=== PATIENT | male | born 1990 | race Caucasian/White ===

== ENCOUNTER 2020-10-04 03:17 | Emergency (ER) | payer OTHER ==
[~2020-10-04] VITALS: Ht 180.3 cm; Wt 72.6 kg
--- NOTE | 2020-10-04 03:25 | NUR ---
PRESENTED TO THE ER FOR C/O GENERALIZED BODY HIVES. PT A, OX4,REPORTED HE HAD REC'D HIS WEEKLY IMMUNOTHERAPY YESTERDAY WITH A HIGHER DOSE. NO SOB REPORTED. PT WAS PLACED IN ER BED 9, ON MONITOR . VSS. WILL CONT TO MONITOR ,
[2020-10-04] MEDS ORDERED: diphenhydrAMINE HCL 50 MG/ML VIAL IV ONE (03:30)
[2020-10-04] MEDS ORDERED: methylPREDNISolone SOD SUCC 125 MG/2ML VIAL IV ONE (03:30)
[2020-10-04] MEDS ORDERED: FAMOTIDINE/PF INJ 20 MG/2 ML VIAL IV ONE ×2 (03:30→03:34)
[2020-10-04] MEDS ORDERED: IV NS 0.9% 1,000 ML BAG IV ONE (03:30)
[2020-10-04] MEDS ORDERED: methylPREDNISolone SOD SUCC 125 MG/2ML VIAL ONE (03:34)
[2020-10-04] MEDS ORDERED: diphenhydrAMINE HCL 50 MG/ML VIAL ONE (03:34)
--- NOTE | 2020-10-04 04:03 | NUR ---
PT IN BED AWAKE WITH AT THE BED SIDE. ON ONGOING IVF THERAPY. REPORTED FEELING BETTER . WILL CONT TO MONITOR
--- NOTE | 2020-10-04 04:23 | NUR ---
PATIENT'S REDNESS AND HIVES CLEARED UP. DR. AGUAYO NOTIFIED. PATIENT DENIES TROUBLE BREATHING, NOR THROAT CLOSING.
[2020-10-04 04:24] VITALS: BP 125/75
--- NOTE | 2020-10-04 04:24 | NUR ---
Patient discharged to home in stable condition. Written and verbal after care instructions given. Patient verbalizes understanding of instruction.
--- NOTE | 2020-10-04 04:24 | NUR ---
IV removed. Catheter intact and site benign. Pressure and 4x4 applied to site. No bleeding noted.
== END 2020-10-04 04:32 | disposition home or self-care (01) ==
LOC: ER 03:17
DX: T78.40XA Allergy, unspecified, initial encounter (principal); X58.XXXA Exposure to other specified factors, initial encounter
CPT/HCPCS: 96361; 96374; 96375; 99284; J1200; J2930; J3490; J7030